=== PATIENT | female | born 1975 | race Two or more races ===

== ENCOUNTER 2018-11-23 11:34 | Emergency (ER) | payer OTHER ==
[~2018-11-23] VITALS: Ht 152.4 cm; Wt 68.5 kg
[~2018-11-23 11:34] MED LIST: HYZAAR 100/25 T1 TAB; LEVSIN/SL0.125 MG SL; PROTONIX40 MG PO; TOPROL XL25 MG
== END 2018-11-23 17:57 | disposition home or self-care (01) ==
LOC: ER 11:34
DX: K43.2 Incisional hernia without obstruction or gangrene (principal)

== ENCOUNTER 2020-04-15 09:56 | Emergency (ER) | payer OTHER ==
[~2020-04-15] VITALS: Ht 152.4 cm; Wt 84.8 kg
[2020-04-15] MEDS ORDERED: KETO10TA2 PO (12:20)
== END 2020-04-15 12:44 | disposition home or self-care (01) ==
LOC: ER 09:56
DX: M25.561 Pain in right knee (principal)

== ENCOUNTER 2020-09-26 18:24 | Emergency (ER) | payer OTHER ==
[~2020-09-26] VITALS: Ht 152.4 cm; Wt 84.4 kg
[~2020-09-26 18:24] MED LIST changes: +KETO10TA2 PO
== END 2020-09-26 22:35 | disposition home or self-care (01) ==
LOC: ER 18:24
DX: G56.21 Lesion of ulnar nerve, right upper limb (principal); G56.01 Carpal tunnel syndrome, right upper limb